=== PATIENT | male | born 1970 | race Caucasian/White ===

== ENCOUNTER 2024-02-21 06:22 | Day surgery (SDC) | payer OTHER, SELFPAY ==
--- NOTE | 2024-02-09 14:34 | PTCARENOTE ---
Patient tested + for COVID 02/07, contacted Berna WARREN regarding surgery date of 02/14. Berna indicated surgery can be scheduled 10 days after testing +, Lorrie @ Dr. Loza office notified
[2024-02-20 08:55] VITALS: BMI 30.1
[2024-02-21] VITALS (9 sets, daily range): BP systolic 94–111; BP diastolic 60–77; BMI 30.1
[2024-02-21] MEDS: CELEBREX 200 MG PO (10:38)
[2024-02-21] MEDS: TYLENOL 1000 MG PO (10:38)
[2024-02-21] MEDS: NORMOSOL-R 1000 IV (10:38)
== END 2024-02-21 13:05 | disposition home or self-care (01) ==
LOC: SDS 06:22
PROVIDERS: ATTENDING PHYSICIAN Orthopaedic Surgery Hand Surgery; FAMILY PHYSICIAN Family Medicine
DX: G56.01 Carpal tunnel syndrome, right upper limb (principal)
CPT/HCPCS: 29848; 36415; 93005

== ENCOUNTER 2025-02-19 06:25 | Day surgery (SDC) | payer OTHER, SELFPAY ==
[2025-02-19] VITALS (10 sets, daily range): BP systolic 93–121; BP diastolic 48–69; BMI 24.7
[2025-02-19] MEDS: TYLENOL 1000 MG PO (07:48)
[2025-02-19] MEDS: CELEBREX 200 MG PO (07:48)
[2025-02-19] MEDS: NORMOSOL-R/PLASMALYTE-A 1000 IV (07:49)
[2025-02-19] MEDS: ZOFRAN 4 MG IV (10:43)
== END 2025-02-19 13:05 | disposition home or self-care (01) ==
LOC: SDS 06:25
PROVIDERS: ATTENDING PHYSICIAN Orthopaedic Surgery Hand Surgery; FAMILY PHYSICIAN Family Medicine
DX: S46.011A Strain of muscle(s) and tendon(s) of the rotator cuff of right shoulder, initial encounter (principal); X58.XXXA Exposure to other specified factors, initial encounter
CPT/HCPCS: 29827; 29826; 93005; C1713